=== PATIENT | female | born 1960 | race Caucasian/White ===

== ENCOUNTER 2019-12-21 18:36 | Emergency (ER) | payer SELFPAY ==
--- NOTE | 2019-12-21 21:11 | ED ---
Lower Extremity - HPI Summary HPI Summary: 59-year-old female presents with right ankle and parson injury a week ago. She states that she hit a pot hole in a parking lot with her shopping cart and ended up injuring her right leg. She says that she's had a lot of swelling to the area and bruising. She's been moving so she has been on her feet a lot. She denies any numbness or tingling. She has pain over the lateral aspect of her ankle. She has noticed bruising to the foot but no pain. She also been complaining of left hip pain for the past couple months. 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 She denies any fevers or chills. - History of Current Complaint Chief Complaint: EDExtremityLower Stated Complaint: ANKLE INJURY PER PT Time Seen by Provider: 12/21/19 19:16 Pain Intensity: 4 - Allergies/Home Medications Allergies/Adverse Reactions: Allergies Allergy/AdvReac Type Severity Reaction Status Date / Time gluten Allergy GI Upset Verified 12/21/19 18:50 latex Allergy GI Upset Verified 12/21/19 18:50 phenytoin [From Dilantin] Allergy Anaphylatic Verified 12/21/19 18:50 Shock soy Allergy GI Upset Verified 12/21/19 18:50 Home Medications: Home Medications Baclofen TAB* [Lioresal TAB*] 10 mg PO QPM PRN 12/21/19 [History Confirmed 12/21] Budesonide/Formote 160/4.5(NF) [Symbicort 160/4.5 (NF)] 2 puff INH BID 12/21/19 [History Confirmed 12/21/19] Cholecalciferol CAP/TAB(NF) [Vitamin D3 CAP/TAB (NF)] 1 cap PO DAILY 12/21/19 [ History Confirmed 12/21/19] Diazepam TAB(*) [Valium TAB(*)] 5 mg PO DAILY PRN 12/21/19 [History Confirmed ] HydroCODONE/Acetamin 10/325 NF [[place] 10/325 (NF)] 0.5 mg PO Q6HR PRN 12/21/19 [ History Confirmed 12/21/19] Klonopin 0.5 mg PO QPM PRN 12/21/19 [History Confirmed 12/21/19] Levalbuterol HFA INHALER* [Xopenex Hfa Inhaler*] 1 puff INH Q6HR PRN 12/21/19 [ History Confirmed 12/21/19] Levothyroxine TAB* [Synthroid 25 MCG TAB*] 1 tab PO DAILY 12/21/19 [History Confirmed 12/21/19] [place] Carbonate [[place] Carbonate 300 mg cap] 300 mg PO QAM 12/21/19 [ History Confirmed 12/21/19] [place] Carbonate [[place] Carbonate 600 mg cap] 600 mg PO QPM 12/21/19 [ History Confirmed 12/21/19] Loratadine 10 mg PO DAILY 12/21/19 [History Confirmed 12/21/19] Mometasone Furoate [Nasonex] 2 spray BOTH NARES DAILY 12/21/19 [History Confirmed 12/21/19] Promethazine 25 mg TAB [Phenergan 25 mg TAB] 12.5 mg PO BID PRN 12/21/19 [ History Confirmed 12/21/19] busPIRone TAB* [Buspar TAB*] 10 mg PO BID 12/21/19 [History Confirmed 12/21/19] PMH/Surg Hx/FS Hx/Imm Hx Endocrine/Hematology History: Reports: Hx Thyroid Disease Denies: Hx Anticoagulant Therapy Respiratory History: Reports: Hx Asthma Infectious Disease History: No Infectious Disease History: Denies: Traveled Outside the [place] in Last 30 Days - Family History Known Family History: Positive: Non-Contributory - Social History Alcohol Use: Rare Substance Use Type: Reports: None Smoking Status (MU): Former Smoker Review of Systems Negative: Fever Negative: Chest Pain Negative: Shortness Of Breath Positive: Myalgia - left hip and right ankle pain All Other Systems Reviewed And Are Negative: Yes Physical Exam Triage Information Reviewed: Yes Vital Signs On Initial Exam: Initial Vitals Temp Pulse Resp BP Pulse Ox 98.4 F 69 18 164/76 99 12/21/19 18:44 12/21/19 18:44 12/21/19 18:44 12/21/19 18:44 12/21/19 18:44 Vital Signs Reviewed: Yes Appearance: Positive: Well-Appearing Skin: Positive: Warm, Dry, Other - ecchymosis noted to right parson, ecchymosis and edema noted to lateral malleolus Head/Face: Positive: Normal Head/Face Inspection Eyes: Positive: Normal, Conjunctiva Clear ENT: Positive: Pharynx normal Respiratory/Lung Sounds: Positive: Clear to Auscultation, Breath Sounds Present Cardiovascular: Positive: Normal, RRR Musculoskeletal: Positive: Strength/ROM Intact - right ankle with pain, Other - tenderness left hip, tenderness lateral malleolus, edema noted to feet left but nontender Neurological: Positive: Normal Psychiatric: Positive: Normal Procedures - Sedation Patient Received Moderate/Deep Sedation with Procedure: No Diagnostics - Vital Signs Vital Signs Temp Pulse Resp BP Pulse Ox 12/21/19 20:00 60 98 12/21/19 19:45 63 165/94 97 12/21/19 19:15 58 97 12/21/19 19:14 67 182/92 98 12/21/19 18:44 98.4 F 69 18 164/76 99 - Laboratory Lab Statement: Any lab studies that have been ordered have been reviewed, and results considered in the medical decision making process. - Radiology hip Radiology Interpretation Completed By: ED Physician Summary of Radiographic Findings: no fracture tibia Radiology Interpretation Completed By: ED Physician Summary of Radiographic Findings: potential avulsion fracture fibula - Ultrasound No standard instances Ultrasound Interpretation Completed By: Radiologist Summary of Ultrasound Findings: IMPRESSION: Ultrasound shows a probable hematoma measuring 5 x 3 cm in the area of concern. Lower Extremity Course/Dx - Course Course Of Treatment: 59-year-old female presents with right ankle and parson injury a week ago. She states that she hit a pot hole in a parking lot with her shopping cart and ended up injuring her right leg. She says that she's had a lot of swelling to the area and bruising. She's been moving so she has been on her feet a lot. She denies any numbness or tingling. She has pain over the lateral aspect of her ankle. She has noticed bruising to the foot but no pain. She also been complaining of left hip pain for the past couple months. 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 She denies any fevers or chills. On exam has large contusion noted to right parson. Ultrasound the area showed a hematoma. Has tenderness and edema noted to the lateral malleolus of right ankle. X-ray preliminary shows potential avulsion fracture. We will give gel splint. X-ray shows no fracture. Will have follow- up with ortho. Patient understands and agrees with the plan. - Diagnoses Differential Diagnosis/HQI/PQRI: Positive: Contusion, Fracture (Closed), Sprain Provider Diagnoses: Hematoma of right lower extremity, Right ankle injury, Left hip pain Discharge ED - Sign-Out/Discharge Documenting (check all that apply): Patient Departure - Discharge Plan Condition: Good Disposition: HOME Patient Education Materials: Hematoma (ED) Referrals: Lubna Jin MD [Medical Doctor] - [facility] [Outside] Additional Instructions: Apply ice, rest, elevate use pain medications as previously prescribed use splint on area Follow up with ortho establish care with primary Return to ED if develop any new or worsening symptoms - Billing Disposition and Condition Condition: GOOD Disposition: Home
[2019-12-21 21:53] VITALS: BP 153/85
== END 2019-12-21 21:39 | disposition home or self-care (01) ==
LOC: ED 18:36
DX: S80.11XA Contusion of right lower leg, initial encounter (principal); S99.911A Unspecified injury of right ankle, initial encounter; M25.571 Pain in right ankle and joints of right foot; E03.9 Hypothyroidism, unspecified; Z87.891 Personal history of nicotine dependence; M25.552 Pain in left hip; X50.9XXA Other and unspecified overexertion or strenuous movements or postures, initial encounter; Y93.9 Activity, unspecified; Y92.9 Unspecified place or not applicable
CPT/HCPCS: 99282

== ENCOUNTER 2020-01-11 16:00 | Emergency (ER) | payer SELFPAY ==
--- OUTSIDE RECORDS SUMMARY | 2020-01-11 16:24 | XMS REPORT | Continuity of Care Document ---
:1960 External Reference #:[id number] Author Name Lubna Jin M.D. 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 Onset: 01/07/2020 Arthralgia of the ankle and/or foot Lubna Jin M.D. Onset: 01/07/2020 Social History Type Date Description Comments Sex Unknown ETOH Use Denies alcohol use Tobacco Use Start: Unknown End: Patient is a former smoker Unknown Smoking Status Reviewed: 01/07/20 Patient is a former smoker Exercise Type/Frequency Does not exercise Allergies, Adverse Reactions, Alerts Active Allergies Reaction Severity Comments Date Latex 01/02/2020 Phenytoin 01/02/2020 Medications Active Medications SIG Qnty Indications Ordering Provider Date Baclofen take 1/2-1 tab Unknown 10mg Tablets every 8 hours as needed for muscle spasm Budesonide/Formoterol 1 puff twice a day Unknown Fumarate Dihydrate 160-4.5mcg/Act Aerosol Buspirone HCL Unknown 10mg Tablets Vitamin D Unknown (Cholecalciferol) Diazepam Unknown 5mg Tablets Hydrocodone-Acetaminop Unknown hen 10-325mg Tablets Klonopin 1 by mouth every Unknown 0.5mg Tablets day Levalbuterol Tartrate 1 puff 2-3 times Unknown daily as needed 45mcg/Act Aerosol for sob Levothyroxine Sodium Unknown [place] Carbonate 1 by mouth every Unknown 300mg morning Capsules [place] Carbonate 1 by mouth every Unknown 600mg evening Capsules Loratadine once a day for Unknown 10mg Capsules allergies as needed Promethazine HCL Unknown 25mg Tablets Mometasone Furoate 2 sprays each Unknown nostril once daily 50mcg/Act Suspension Immunizations Description No Information Available Vital Signs Date Vital Result Comment 01/07/2020 4:11pm Height 65 inches 5'5" Weight 220.00 lb Heart Rate 64 /min BP Systolic 132 mmHg BP Diastolic 90 mmHg Body Temperature 98.9 F Pain Level 6 BMI (Body Mass Index) 36.6 kg/m2 Results Description No Information Available Procedures Description No Information Available Medical Devices Description No Information Available Encounters Description No Information Available Assessments Date Code Description Provider 01/07/2020 M25.571 Pain in right ankle and joints of right foot Lubna Jin M.D. 01/07/2020 M25.552 Pain in left hip Lubna Jin M.D. 01/07/2020 Z96.642 Presence of left artificial hip joint Lubna Jin M.D. Plan of Treatment 01/07/2020 - Lubna Jin M.D.M25.571 Pain in right ankle and joints of right footNew Xrays:Foot Right 3+ VWS, Ordered: 01/07/20M25.552 Pain in left hipZ96.642 Presence of left artificial hip jointNew Therapy:Physical TherapyFollow up:Follow up: 3 weeks Functional Status Description No Information Available Mental Status Description No Information Available Referrals Description No Information Available
--- NOTE | 2020-01-11 17:11 | ED ---
Nausea/Vomiting/Diarrhea HPI - HPI Summary HPI Summary: 59-year-old female presents to the emergency department today complaining of nausea, diarrhea, body aches," brain fog" for the last week. Patient states she has been renting from an [employer] which was recently tested positive for Escherichia coli in the water. Patient states approximately one week ago she was given antibiotics by her primary care provider for possible infectious diarrhea and since the patient has transitioned to bottled water. Patient states she has been having 3 bouts of watery stools daily for the last week. Patient states she believes she has had a fever however she is afebrile upon arrival in the emergency department. There are no signs of hypovolemia. Patient denies pus or blood in her stools. Patient denies abdominal pain at this time. Patient otherwise feels well and denies chest pain, abdominal pain, pain with urination, vomiting. Patient states she has been taking Phenergan and Zofran for her symptoms. - History of Current Complaint Chief Complaint: EDGeneral Stated Complaint: POSS E-COLI PER PT Time Seen by Provider: 01/11/20 16:31 Hx Obtained From: Patient Onset/Duration: Gradual Onset Timing: Constant Severity Initially: Moderate Severity Currently: Moderate Pain Intensity: 5 Pain Scale Used: 0-10 Numeric Nausea/Vomiting Presence: None Diarrhea Duration: 3-7 days Diarrhea Characteristics: Watery - Allergies/Home Medications Allergies/Adverse Reactions: Allergies Allergy/AdvReac Type Severity Reaction Status Date / Time gluten Allergy GI Upset Verified 01/11/20 16:08 latex Allergy GI Upset Verified 01/11/20 16:08 phenytoin [From Dilantin] Allergy Anaphylatic Verified 01/11/20 16:08 Shock soy Allergy GI Upset Verified 01/11/20 16:08 Home Medications: Home Medications Baclofen TAB* [Lioresal TAB*] 10 mg PO QPM PRN 12/21/19 [History Confirmed 01/10] Budesonide/Formote 160/4.5(NF) [Symbicort 160/4.5 (NF)] 2 puff INH BID 12/21/19 [History Confirmed 01/11/20] Cholecalciferol CAP/TAB(NF) [Vitamin D3 CAP/TAB (NF)] 1 cap PO DAILY 12/21/19 [ History Confirmed 01/11/20] Diazepam TAB(*) [Valium TAB(*)] 5 mg PO DAILY PRN 12/21/19 [History Confirmed ] HydroCODONE/Acetamin 10/325 NF [[place] 10/325 (NF)] 0.5 mg PO Q6HR PRN 12/21/19 [ History Confirmed 01/11/20] Levalbuterol HFA INHALER* [Xopenex Hfa Inhaler*] 1 puff INH Q6HR PRN 12/21/19 [ History Confirmed 01/11/20] Levothyroxine TAB* [Synthroid 25 MCG TAB*] 1 tab PO DAILY 12/21/19 [History Confirmed 01/11/20] [place] Carbonate [[place] Carbonate 300 mg cap] 300 mg PO QAM 12/21/19 [ History Confirmed 01/11/20] [place] Carbonate [[place] Carbonate 600 mg cap] 600 mg PO QPM 12/21/19 [ History Confirmed 01/11/20] Loratadine 10 mg PO DAILY 12/21/19 [History Confirmed 01/11/20] Mometasone Furoate [Nasonex] 2 spray BOTH NARES DAILY 12/21/19 [History Confirmed 01/11/20] Promethazine 25 mg TAB [Phenergan 25 mg TAB] 12.5 mg PO BID PRN 12/21/19 [ History Confirmed 01/11/20] busPIRone TAB* [Buspar TAB*] 10 mg PO BID 12/21/19 [History Confirmed 01/11/20] clonazePAM TAB(*) [KlonoPIN TAB(*)] 0.5 mg PO BEDTIME PRN 01/11/20 [History Confirmed 01/11/20] PMH/Surg Hx/FS Hx/Imm Hx Endocrine/Hematology History: Reports: Hx Thyroid Disease Denies: Hx Anticoagulant Therapy Respiratory History: Reports: Hx Asthma Infectious Disease History: No Infectious Disease History: Denies: Traveled Outside the [place] in Last 30 Days - Family History Known Family History: Positive: Non-Contributory - Social History Alcohol Use: Rare Substance Use Type: Reports: None Smoking Status (MU): Former Smoker Review of Systems Positive: Fever, Fatigue Eyes: Negative ENT: Negative Cardiovascular: Negative Respiratory: Negative Positive: Diarrhea, Nausea. Negative: Abdominal Pain Genitourinary: Negative Musculoskeletal: Negative Skin: Negative Neurological/Mental Status: Negative Positive: Anxious All Other Systems Reviewed And Are Negative: Yes Physical Exam - Summary Physical Exam Summary: Patient is anxious and conversation however she is nontoxic appearing and does not have any evidence of hypovolemia or dehydration. Triage Information Reviewed: Yes Vital Signs On Initial Exam: Initial Vitals Temp Pulse Resp BP Pulse Ox 98.4 F 75 16 160/78 99 01/11/20 16:04 01/11/20 16:04 01/11/20 16:04 01/11/20 16:04 01/11/20 16:04 Vital Signs Reviewed: Yes Appearance: Positive: Well-Appearing, No Pain Distress, Well-Nourished Skin: Positive: Warm, Skin Color Reflects Adequate Perfusion Eyes: Positive: EOMI, CORTEZ ENT: Positive: Hearing grossly normal Respiratory/Lung Sounds: Positive: Clear to Auscultation, Breath Sounds Present Cardiovascular: Positive: RRR, S1, S2 Abdomen Description: Positive: Nontender, Soft Musculoskeletal: Positive: Strength/ROM Intact Neurological: Positive: Sensory/Motor Intact, Alert, Oriented to Person Place, Time, Normal Gait, Facial Symmetry, Speech Normal Psychiatric: Positive: Anxious AVPU Assessment: Alert Procedures - Sedation Patient Received Moderate/Deep Sedation with Procedure: No Diagnostics - Vital Signs Vital Signs Temp Pulse Resp BP Pulse Ox 01/11/20 16:04 98.4 F 75 16 160/78 99 - Laboratory Lab Statement: Any lab studies that have been ordered have been reviewed, and results considered in the medical decision making process. Naus/Vom/Diarrhea Course/Dx - Course Course Of Treatment: Patient was evaluated in the emergency department today for contaminated water. Vitals noted and stable. No evidence of infectious diarrhea at this time and no evidence of hypovolemia. Patient was discharged to outpatient follow-up as there is no evidence of acute medical pathology requiring intervention at this time. - Differential Dx/Diagnosis Differential Diagnoses - Female: Other - Infectious diarrhea, diarrhea, traveler 's diarrhea, nausea Provider Diagnosis: Diarrhea Condition At Discharge: Stable Discharge ED - Sign-Out/Discharge Documenting (check all that apply): Patient Departure - Discharge Plan Condition: Stable Disposition: HOME Patient Education Materials: Acute Diarrhea (ED) Forms: *Work Release Referrals: [facility] [Outside] - 3 Days No Primary Care Phys,NOPCP [Primary Care Provider] - Additional Instructions: You were seen in the emergency department today due to possible contaminated water. It appears there is no evidence of infectious diarrhea at this time. Please continue to use bottled water. I also encourage you to take probiotics or consume food with probiotics in them such as yogurt and sauerkraut. Please follow-up in 3-4 days with your primary care provider for further evaluation and management. Please return to the emergency department immediately if you develop any new or worsening symptoms such as significant fever, pus in your stool, significant amounts of blood in your stool, if you're having more than 1 watery bowel movement per hour. - Billing Disposition and Condition Condition: STABLE Disposition: Home
[2020-01-11 18:45] VITALS: BP 144/82
== END 2020-01-11 18:36 | disposition home or self-care (01) ==
LOC: ED 16:00
DX: R19.7 Diarrhea, unspecified (principal); F41.9 Anxiety disorder, unspecified; R50.9 Fever, unspecified; R11.0 Nausea; E03.9 Hypothyroidism, unspecified; Z87.891 Personal history of nicotine dependence; Z79.890 Hormone replacement therapy; Z79.899 Other long term (current) drug therapy
CPT/HCPCS: 99284

== ENCOUNTER 2021-06-04 12:55 | Inpatient (IN) ==
[~2021-06-04 12:55] MED LIST: Buffered Lidocaine 1% SYRIN 1 ml INTRADERM ONE; HYDROcodone/ACETAMIN 5/325 mg TAB PO PRN; Lactated Ringers 1000 ml BAG 1,000 ML IV SCH; Metoclopramide 5 MG/ML VIAL (10 mg) IV PRN; Naloxone 0.4 mg VIAL 0.4 mg/ml 1 ml VIAL IV PRN; Ondansetron 4 mg VIAL 2 MG/ML 2 ml VIAL IV PRN; fentaNYL 100 mcg/2 ml 50 MCG/ML VIAL IV PRN
[2021-06-04] MEDS: DiMENhydriNATE IV 50 mg/ml 1 ml VIAL IV PUSH ONE ×2 (14:06→14:51)
[2021-06-04] MEDS ORDERED: Ropivacaine 5 MG/ML 20 ML VIAL 0.5% (100 MG) ONE (14:17)
[2021-06-04] MEDS ORDERED: fentaNYL 250 mcg/5 ml 50 MCG/ML 5 ml VIAL (250 MCG) ONE (14:51)
[2021-06-04] MEDS ORDERED: Propofol 10 MG/ML 20 ML BTL ONE ×2 (14:51→17:25)
[2021-06-04] MEDS ORDERED: ROPIVACAINE 5 MG/ML 30 ML BTL (0.5%) ONE (15:04)
[2021-06-04] MEDS ORDERED: Bupivacaine 0.5% SDV PF 30ML VIAL ONE (15:27)
[2021-06-04] MEDS ORDERED: diPHENhydraMINE IV 50 MG/ML 1 ml VIAL (BENADRYL) IV PRN (15:36)
[2021-06-04] MEDS ORDERED: Morphine 2 MG/ML SYRINGE IV PRN (15:36)
[2021-06-04] MEDS ORDERED: Lactulose 30 ml UDC PO PRN (15:36)
[2021-06-04] MEDS ORDERED: Ondansetron 4 mg VIAL 2 MG/ML 2 ml VIAL IV PRN (15:36)
[2021-06-04] MEDS ORDERED: diPHENhydraMINE 25 mg TAB PO PRN (15:36)
[2021-06-04] MEDS ORDERED: Magnesium Hydroxide LIQ 30 ML UDC PO PRN (15:36)
[2021-06-04] MEDS ORDERED: Ondansetron ODT 4 mg TAB 4 MG TAB PO PRN ×2 (15:36→15:45)
[2021-06-04] MEDS ORDERED: Levalbuterol HFA INHALER MDI INH PRN (15:45)
[2021-06-04] MEDS ORDERED: EPHEDrine (Pressors) 50 MG/ML VIAL ONE (16:00)
[2021-06-04] MEDS ORDERED: Naloxone 0.4 mg VIAL 0.4 mg/ml 1 ml VIAL IV PRN (16:47)
[2021-06-04] MEDS ORDERED: HYDROcodone/ACETAMIN 5/325 mg TAB PO PRN (18:55)
[2021-06-04] MEDS ORDERED: HYDROcodone/ACETAMIN 5/325 mg TAB ONE (19:23)
[2021-06-04] MEDS ORDERED: fentaNYL 100 mcg/2 ml 50 MCG/ML VIAL ONE ×2 (19:32→20:24)
[2021-06-04] MEDS: fentaNYL 100 mcg/2 ml 50 MCG/ML VIAL IV PRN ×3 (19:35→20:29)
[2021-06-04] MEDS ORDERED: Morphine 4 MG/ML VIAL (1 ml) ONE (20:04)
[2021-06-04] MEDS: Morphine 4 MG/ML VIAL (1 ml) IV PRN ×2 (20:06→20:18)
[2021-06-04] MEDS ORDERED: EPINEPHrine PEN ADULT(NF) 0.3 MG SYRINGE IM PRN (21:10)
[2021-06-04] MEDS: Lactated Ringers 1000 ml BAG 1,000 ML IV SCH (21:18)
[2021-06-04] MEDS: Morphine ER 15 mg TAB ** extended release PO SCH (21:41)
[2021-06-04] MEDS: HYDROmorphone 0.5 MG/0.5 ML SYRINGE IV SLOW PU PRN ×2 (21:48→23:54)
[2021-06-04] MEDS: Magnesium Hydroxide LIQ 30 ML UDC PO SCH ×2 (23:15→23:17)
[2021-06-04] MEDS: Mometasone/Formoter 200/5 MDI INH SCH (23:21)
[2021-06-04] MEDS: NFT: Azelastine/Fluticasone 137-50 MCG BTL (NF) BOTH NARES SCH (23:24)
[2021-06-04] MEDS: MOMETASONE INH SCH (23:24)
[2021-06-04] MEDS ORDERED: Naloxone 0.4 mg VIAL 0.4 mg/ml 1 ml VIAL IV PUSH PRN (23:42)
[2021-06-05] MEDS: ceFAZolin 1 GM ADVAN 1 GM in NS 0.9% 50 ML 50 ML IVPB SCH ×3 (00:16→16:13)
[2021-06-05] MEDS: HYDROmorphone 0.5 MG/0.5 ML SYRINGE IV SLOW PU PRN (03:50)
[2021-06-05] MEDS: Mometasone/Formoter 200/5 MDI INH SCH ×2 (07:29→21:33)
[2021-06-05] MEDS: MOMETASONE INH SCH ×2 (07:32→21:37)
[2021-06-05] MEDS: Vitamin THERAPEUTIC TAB PO SCH (08:16)
[2021-06-05] MEDS: Morphine ER 15 mg TAB ** extended release PO SCH ×2 (08:16→19:29)
[2021-06-05] MEDS: Magnesium Hydroxide LIQ 30 ML UDC PO SCH ×2 (08:17→20:01)
[2021-06-05] MEDS: NFT: Azelastine/Fluticasone 137-50 MCG BTL (NF) BOTH NARES SCH ×2 (08:23→20:00)
[2021-06-05] MEDS: Lactated Ringers 1000 ml BAG 1,000 ML IV SCH (10:52)
[2021-06-05 10:56] LABS: Hematocrit 35 % (35-47); Hemoglobin 11.6 g/dL (12.0-16.0); Mean Platelet Volume 8.8 fL (7.4-10.4); Platelet Count 190 10^3/uL (150-450)
[2021-06-05 11:17] LABS: Calcium 9.1 mg/dL (8.6-10.3); EGFR African American 104.7 (>60); EGFR Non-African American 86.5 (>60); Potassium 4.2 mmol/L (3.5-5.0)
[2021-06-06 06:42] LABS: Hematocrit 34 % (35-47); Hemoglobin 11.6 g/dL (12.0-16.0); Platelet Count 167 10^3/uL (150-450)
[2021-06-06] MEDS: Mometasone/Formoter 200/5 MDI INH SCH (08:37)
[2021-06-06] MEDS: Magnesium Hydroxide LIQ 30 ML UDC PO SCH (08:41)
[2021-06-06] MEDS: Vitamin THERAPEUTIC TAB PO SCH (08:42)
[2021-06-06] MEDS: Morphine ER 15 mg TAB ** extended release PO SCH (08:43)
[2021-06-06] MEDS: NFT: Azelastine/Fluticasone 137-50 MCG BTL (NF) BOTH NARES SCH (08:45)
[2021-06-06] MEDS: MOMETASONE INH SCH (08:45)
[2021-06-06 11:32] VITALS: BP 136/76
== END 2021-06-06 15:36 | disposition home health service (06) | DRG 302 ==
LOC: AA 12:55 → SSU 20:57
PROVIDERS: ADMIT Orthopaedic Surgery Adult Reconstructive Orthopaedic Surgery; ATTEND Orthopaedic Surgery Adult Reconstructive Orthopaedic Surgery